=== PATIENT | male | born 1985 | race Caucasian/White ===

== ENCOUNTER 2021-01-28 21:13 | Emergency (ER) | payer BC ==
[2021-01-28] MEDS ORDERED: Lidocaine 1% 30 ML SDV INJECT ONE (21:23)
[2021-01-28] MEDS ORDERED: Bacitracin Oint 1 GM U/D Packet TOP ONE (21:23)
[2021-01-28 21:26] VITALS: BP 121/59; PULSE 91
--- NOTE | 2021-01-28 21:28 | EDM.PDOC ---
ED HPI GENERAL MEDICAL PROBLEM - General Chief Complaint: Laceration Stated Complaint: RIGHT POINTER FINGER Time Seen by Provider: 01/28/21 21:20 Source of Information: Reports: Patient History Limitations: Reports: No Limitations - History of Present Illness INITIAL COMMENTS - FREE TEXT/NARRATIVE: This 35 yo male patient reports to the ED due to a right 2nd finger laceration. The patient reports he was fishing and fell on the rocks. The patient reports his finger was "bent backwards" after the fall. The patient reports he straightened the finger, but could not fix the laceration. Onset: Today Duration: Minutes: Location: Reports: Upper Extremity, Right Quality: Reports: Ache, Dull Severity: Moderate Improves with: Reports: None Worsens with: Reports: None Context: Reports: Activity Associated Symptoms: Reports: No Other Symptoms Right Finger-Index Pain Score (Numeric/FACES): 2 - Related Data Allergies Allergy/AdvReac Type Severity Reaction Status Date / Time No Known Allergies Allergy Verified 01/28/21 21:30 Home Meds: Home Meds LORazepam 1 mg PO Q8HR PRN #20 tablet 06/15/15 [Rx] Sertraline HCl 100 mg PO DAILY 01/28/21 [History] Past Medical History Other Respiratory History: Reports seasonal allergies ED ROS GENERAL - Review of Systems Review Of Systems: Comprehensive ROS is negative, except as noted in HPI. ED EXAM, SKIN/RASH Exam: See Below Exam Limited By: No Limitations General Appearance: Alert, WD/WN, Mild Distress Eye Exam: Bilateral Eye: EOMI, Normal Inspection, PERRL Ears: Normal External Exam, Hearing Grossly Normal Nose: Normal Inspection, No Blood Throat/Mouth: Normal Lips, Normal Teeth, Normal Voice, No Airway Compromise Head: Atraumatic, Normocephalic Neck: Normal Inspection, Full Range of Motion Respiratory/Chest: No Respiratory Distress, Lungs Clear, Normal Breath Sounds, No Accessory Muscle Use, Chest Non-Tender Cardiovascular: Normal Peripheral Pulses, Regular Rate, Rhythm (Male) Exam: Deferred Rectal (Males) Exam: Deferred Extremities: Arm Pain (Right 2nd finger laceration to the palmar aspect of the PIP joint) Neurological: Alert, Oriented, CN II-XII Intact, Normal Cognition, Normal Gait, Normal Reflexes, No Motor/Sensory Deficits Psychiatric: Normal Affect, Normal Mood Skin: Warm, Dry, Normal Color, No Rash Location, Skin: Upper Extremity, Right Characteristics: Linear Associated features: Tenderness Lymphatic: No Adenopathy ED SKIN PROCEDURES - Laceration/Wound Repair Right Digit - 2nd (Index) Appearance: Subcutaneous Distal NVT: Neuro & Vascular Intact Anesthetic Type: Local Local Anesthesia - Lidocaine (Xylocaine): 1% Plain Local Anesthetic Volume: 3cc Skin Prep: Chlorhexidine (Hibiciens) Exploration/Debridement/Repair: Wound Explored, In a Bloodless Field, No Foreign Material Found Closed with: Sutures Lac/Wound length In cm: 2.0 Suture Size: 4-0 # of Sutures: 9 Suture Type: Prolene, Interrupted, Simple Drain Placement: No Sterile Dressing Applied: Nurse Tetanus Status Addressed: Yes Complications: No Course - Vital Signs Last Recorded V/S: Last Vital Signs Temp 36.1 C 01/28/21 21:25 Pulse 91 01/28/21 21:25 Resp 18 01/28/21 21:25 BP 121/59 L 01/28/21 21:25 Pulse Ox 98 01/28/21 21:25 - Orders/Labs/Meds Orders: Active Orders 24 hr Category Date Time Status Vaccines to be Administered [RC] PER UNIT ROUTINE Care 01/28/21 22:10 Ordered Diphth,Pertuss(Acell),Tet Vac [Boostrix] Med 01/28/21 22:09 Once 0.5 ml IM .ONCE ONE Meds: Medications Discontinued Medications Generic Name Dose Route Start Last Admin Trade Name Bety PRN Reason Stop Dose Admin Bacitracin 1 dose 01/28/21 21:23 01/28/21 21:53 Bacitracin Oint 1 Gm U/D Packet TOP 01/28/21 21:24 1 dose ONETIME ONE Administration Lidocaine HCl 30 ml 01/28/21 21:23 01/28/21 21:53 Lidocaine 1% 30 Ml Sdv INJECT 01/28/21 21:24 30 ml ONETIME ONE Administration - Radiology Interpretation Free Text/Narrative:: [facility] Final Radiology Report Call: [phone] assistance Online chat: [email or web address] Name: SANGEETHA DELUCA Age: 35Years M Date: 01/28/2021 SSN: -- : [id number] Study: CR FINGERS SECOND DIGIT RT Requesting Physician: Avi Ordoñez Images: 3 Addl Studies: Provided Clinical History: laceration Contrast: Contrast Medium: Contrast Amount: Contrast Method: CONFIDENTIALITY STATEMENT This report is intended only for use by the referring physician, and only in accordance with law. If you received this in error, call [phone]. Page 1 of 1 PROCEDURE INFORMATION: Exam: XR Right Finger(s) Exam date and time: 01/28/2021 9:31 PM Age: 35 years old Clinical indication: Injury or trauma; Other: Laceration; Right; Index finger TECHNIQUE: Imaging protocol: XR Right fingers. Views: Minimum 2 views. COMPARISON: No relevant prior studies available. FINDINGS: Bones/joints: No acute fracture or dislocation. Soft tissues: No radiopaque foreign body. IMPRESSION: No acute fracture or dislocation. Thank you for allowing us to participate in the care of your patient. Dictated and Authenticated by: Chirag Keller DO 01/28/2021 10:05 PM Central Time ([place] & [place]) Departure - Departure Time of Disposition: 22:03 Disposition: Home, Self-Care 01 Condition: Fair Clinical Impression: Finger laceration Qualifiers: Encounter type: initial encounter Finger: index finger Damage to nail status: without damage Foreign body presence: with foreign body Laterality: right Qualified Code(s): S61.220A - Laceration with foreign body of right index finger without damage to nail, initial encounter - Discharge Information *PRESCRIPTION DRUG MONITORING PROGRAM REVIEWED*: Not Applicable *COPY OF PRESCRIPTION DRUG MONITORING REPORT IN PATIENT JOSTIN: Not Applicable Instructions: Laceration Care, Adult, [id number] Forms: ED Department Discharge Care Plan Goals: The patient was advised of the examination results during the visit. The laceration margins were well approximated during the visit. The patient should keep the area clean and dry over the next 24 hours. The patient should have the sutures removed in about 14 days. The patient was discharged with a script for Augmentin (500/125) #20 to take 1 by mouth 2 times per day for 10 days. If the patient has any additional symptoms or concerns, the patient should either return to the emergency department or follow-up with his primary care facility. Sepsis Event Note (ED) - Focused Exam Vital Signs: Vital Signs Temp Pulse Resp BP Pulse Ox 01/28/21 21:25 36.1 C 91 18 121/59 L 98 - My Orders Last 24 Hours: My Active Orders 01/28/21 22:09 Diphth,Pertuss(Acell),Tet Vac [Boostrix] 0.5 ml IM .ONCE ONE 01/28/21 22:10 Vaccines to be Administered [RC] PER UNIT ROUTINE - Assessment/Plan Last 24 Hours: My Active Orders 01/28/21 22:09 Diphth,Pertuss(Acell),Tet Vac [Boostrix] 0.5 ml IM .ONCE ONE 01/28/21 22:10 Vaccines to be Administered [RC] PER UNIT ROUTINE
--- NOTE | 2021-01-28 22:05 | CR ---
PROCEDURE INFORMATION: Exam: XR Right Finger(s) Exam date and time: 01/28/2021 9:31 PM Age: 35 years old Clinical indication: Injury or trauma; Other: Laceration; Right; Index finger TECHNIQUE: Imaging protocol: XR Right fingers. Views: Minimum 2 views. COMPARISON: No relevant prior studies available. FINDINGS: Bones/joints: No acute fracture or dislocation. Soft tissues: No radiopaque foreign body. IMPRESSION: No acute fracture or dislocation.
[2021-01-28] MEDS ORDERED: Diphtheria,Pertussis(Acell),Tetanus Vaccine 0.5 ML Syringe IM ONE (22:09)
[2021-01-28] MEDS ORDERED: Diphtheria,Pertussis(Acell),Tetanus Vaccine 0.5 ML Syringe ONE (22:24)
== END 2021-01-28 22:41 | disposition home or self-care (01) ==
LOC: DL.ED 21:13
DX: S61.220A Laceration with foreign body of right index finger without damage to nail, initial encounter (principal); Z23 Encounter for immunization; W18.39XA Other fall on same level, initial encounter; Y93.69 Activity, other involving other sports and athletics played as a team or group
CPT/HCPCS: 12001; 73140-F6; 90471; 90715; 99283; 99283-25

== ENCOUNTER 2025-01-27 22:03 | Emergency (ER) | payer BC ==
[2025-01-27] MEDS ORDERED: dexmedeTOMIDine HCl 200 MCG/2 ML SDV ONE (23:36)
[2025-01-27] MEDS ORDERED: Ondansetron 4 MG/2 ML SDV ONE (23:36)
[2025-01-27] MEDS ORDERED: HYDROmorphone 0.5 MG/0.5 ML Syringe ONE (23:48)
[2025-01-29 21:48] VITALS: BP 131/88; PULSE 86
== END 2025-01-28 00:30 | disposition home or self-care (01) ==
LOC: DL.ED 22:03
DX: S82.891A Other fracture of right lower leg, initial encounter for closed fracture (principal); W01.0XXA Fall on same level from slipping, tripping and stumbling without subsequent striking against object, initial encounter
CPT/HCPCS: 01462; 27840; 73610-RT; 99152; 99153; 99283-25; 99284

== ENCOUNTER 2025-07-23 13:18 | Emergency (ER) | payer BC ==
[2025-07-23] MEDS: Tetracaine HCl/PF 0.5% 4 ML Bottle EYEBOTH ONE (13:32)
[2025-07-23] MEDS: Fluorescein 1 MG Ophth Strip EYEBOTH ONE (13:37)
[2025-07-23] MEDS: Fluorescein 1 MG Ophth Strip ONE (13:54)
[2025-07-23 14:02] VITALS: BP 145/108; PULSE 98
[2025-07-23] MEDS: Erythromycin Base 0.5% Ophth Oint 3.5 GM Tube EYEBOTH ONE (14:26)
== END 2025-07-23 14:35 | disposition home or self-care (01) ==
LOC: DL.ED 13:18
DX: T15.91XA Foreign body on external eye, part unspecified, right eye, initial encounter (principal); Z86.16 Personal history of COVID-19; W44.8XXA Other foreign body entering into or through a natural orifice, initial encounter
CPT/HCPCS: 99283; A9270; J3490